=== PATIENT | female | born 1980 | race Two or more races ===

== ENCOUNTER 2020-04-16 17:39 | Emergency (ER) | payer MEDICAID ==
[~2020-04-16] VITALS: Ht 160 cm; Wt 99.8 kg
[2020-04-16 19:04] LABS: Basophils # (auto) 0 10 ^3/uL (0-0.2); Basophils % (auto) 0.1 % (0.0-2.0); Eosinophils # (auto) 0.1 10 ^3/uL (0-0.8); Eosinophils % (auto) 1.4 % (0.0-7.0); Hematocrit 31.8 % (36.0-46.0); Hemoglobin 10.2 g/dL (12.2-16.2); Lymphocytes # (auto) 1.6 10 ^3/uL (0.4-5.4); Lymphocytes % (auto) 26.2 % (10.0-50.0); Mean Corpuscular Hemoglobin 28.1 pg (28.0-32.0); Mean Corpuscular Hgb Conc. 32.2 g/dL (32.0-36.0); Mean Corpuscular Volume 87.2 fL (80.0-100.0); Monocytes # (auto) 0.7 10 ^3/uL (0-1.3); Monocytes % (auto) 10.8 % (0.0-12.0); Neutrophils # (auto) 3.8 10 ^3/uL (1.6-8.6); Neutrophils % (auto) 61.5 % (37.0-80.0); Platelet Count (auto) 117 10^3/uL (140-450); Red Blood Cells 3.64 10^6/uL (4.0-5.20); Red Cell Distribution Width 16.1 % (11.8-14.3); White Blood Cell 6.2 10^3/uL (4.4-10.8)
[2020-04-16 19:21] LABS: Alanine Aminotransferase 22 U/L (13-56); Anion Gap 7 (5-15); Aspartate Aminotransferase 30 U/L (15-37); BUN/Creatinine Ratio 32.3; Blood Urea Nitrogen 10 mg/dL (7-18); Calcium 8.6 mg/dL (8.5-10.1); Carbon Dioxide 23 mmol/L (21-32); Chloride 109 mmol/L (98-107); GFR African American 302 mL/min; GFR Non-African American 250 mL/min; Glucose 128 mg/dL (74-106); Potassium 3.9 mmol/L (3.5-5.1); Sodium 139 mmol/L (136-145)
[2020-04-16 19:25] LABS: Alkaline Phosphatase 176 U/L (45-117); Bilirubin, Total 1.1 mg/dL (0.2-1.0); Total Protein 7.6 g/dL (6.4-8.2)
[2020-04-16] MEDS ORDERED: DexAMETHasone SOD PHOS 10MG/1ML VIAL INJ IV ONE (20:45)
[2020-04-16 20:51] LABS: Urine Bacteria NONE SEEN /hpf (None Seen); Urine Blood Negative /uL (Negative); Urine Mucus FEW (None Seen); Urine Specific Gravity 1.018 (1.001-1.035); Urine WBC 1 /hpf (0 - 5)
[2020-04-16] MEDS ORDERED: DOXYCYCLINE 100MG/250ML 250 ML IV ONE (21:30)
[2020-04-16 21:50] LABS: INR 1.17 (0.9-1.15)
[2020-04-16] MEDS ORDERED: IOHEXOL 350 MG/ML 100ML IJ ONE (22:57)
[2020-04-17 04:01] VITALS: BP 121/61
== END 2020-04-17 05:09 | disposition home or self-care (01) ==
LOC: ER 17:39
DX: I50.33 Acute on chronic diastolic (congestive) heart failure (principal); E05.00 Thyrotoxicosis with diffuse goiter without thyrotoxic crisis or storm; Z20.828 Contact with and (suspected) exposure to other viral communicable diseases
CPT/HCPCS: 36415; 70490; 71046; 71275; 76536; 80053; 81001; 81025; 83605; 83880; 84443; 84484; 85025; 85379; 85610; 85730; 87040; 87086; 87426; 93005; 96365; 96366; 96375; 99285; C9803; J1100; J3490; Q9967; U0003

== ENCOUNTER → 2020-04-18 | Emergency (ER) | payer MEDICAID ==
[~2020-04-18] VITALS: Ht 170.2 cm; Wt 154.2 kg
[~2020-04-18] MED LIST: FUROSEMIDE 40 MG/4 ML VIAL IV ONE; cefTRIAXone 1GM/50ML D5W 50 ML IV ONE
[2020-04-18 09:38] LABS: Basophils # (auto) 0 10 ^3/uL (0-0.2); Basophils % (auto) 0.1 % (0.0-2.0); Eosinophils # (auto) 0 10 ^3/uL (0-0.8); Eosinophils % (auto) 0.1 % (0.0-7.0); Hematocrit 31.4 % (36.0-46.0); Hemoglobin 10.4 g/dL (12.2-16.2); Lymphocytes # (auto) 0.9 10 ^3/uL (0.4-5.4); Lymphocytes % (auto) 10.1 % (10.0-50.0); Mean Corpuscular Hemoglobin 28.8 pg (28.0-32.0); Mean Corpuscular Volume 87.2 fL (80.0-100.0); Monocytes # (auto) 0.4 10 ^3/uL (0-1.3); Monocytes % (auto) 4.2 % (0.0-12.0); Neutrophils # (auto) 7.4 10 ^3/uL (1.6-8.6); Neutrophils % (auto) 85.5 % (37.0-80.0); Platelet Count (auto) 127 10^3/uL (140-450); Red Cell Distribution Width 16.4 % (11.8-14.3); White Blood Cell 8.7 10^3/uL (4.4-10.8)
[2020-04-18 09:39] LABS: Urine Bacteria FEW /hpf (None Seen); Urine Blood Negative /uL (Negative); Urine Mucus FEW (None Seen); Urine Specific Gravity 1.019 (1.001-1.035); Urine WBC <1 /hpf (0 - 5)
[2020-04-18 10:04] LABS: Calcium 8.7 mg/dL (8.5-10.1); Potassium 3.8 mmol/L (3.5-5.1)
[2020-04-18 10:08] LABS: BUN/Creatinine Ratio 48.1; Total Protein 7.6 g/dL (6.4-8.2)
[2020-04-18 11:24] VITALS: BP 156/72
== END | disposition home or self-care (01) ==
LOC: ER 08:45
DX: I50.9 Heart failure, unspecified (principal)
CPT/HCPCS: 36415; 71045; 80053; 81001; 82150; 83690; 83880; 85025; 96365; 96375; 99285; J0696; J1940